=== PATIENT | female | born 1965 | race Caucasian/White ===

== ENCOUNTER 2017-02-20 09:46 | Emergency (ER) | payer SELFPAY ==
[2017-02-20 10:10] VITALS: BP 134/72
--- NOTE | 2017-02-20 11:28 | UC ---
Throat Pain/Nasal Fabien HPI - HPI Summary HPI Summary: 52 yo female with the acute onset of pain swollen glands (ant cervical) mild sore throat no recent illness no fatigue no wt loss no f/c no myalgias or arthralgias - History of Current Complaint Chief Complaint: UCGeneralIllness Stated Complaint: SWOLLEN GLANDS Time Seen by Provider: 02/20/17 10:42 Hx Obtained From: Patient Hx Last Menstrual Period: 12/12/16 Onset/Duration: Sudden Onset, Lasting Hours Severity: Moderate Pain Intensity: 4 Pain Scale Used: 0-10 Numeric Cough: None Associated Signs & Symptoms: Positive: Negative - Allergies/Home Medications Allergies/Adverse Reactions: Allergies Allergy/AdvReac Type Severity Reaction Status Date / Time Unknown Antibiotic Allergy Rash Uncoded 02/20/17 10:12 PMH/Surg Hx/FS Hx/Imm Hx Previously Healthy: Yes - Surgical History Surgical History: None - Family History Known Family History: Negative: Cardiac Disease, Hypertension, Diabetes - Social History Alcohol Use: Rare Substance Use Type: None Smoking Status (MU): Never Smoked Tobacco Review of Systems Constitutional: Negative Skin: Negative Eyes: Negative ENT: Negative Respiratory: Negative Cardiovascular: Negative Gastrointestinal: Negative Genitourinary: Negative Motor: Negative Neurovascular: Negative Musculoskeletal: Negative Neurological: Negative Psychological: Negative All Other Systems Reviewed And Are Negative: Yes Physical Exam Triage Information Reviewed: Yes Appearance: Well-Appearing, No Pain Distress, Well-Nourished Vital Signs: Initial Vital Signs Temp 98.9 F 02/20/17 09:59 Pulse 94 02/20/17 09:59 Resp 14 02/20/17 09:59 BP 134/72 02/20/17 09:59 Pulse Ox 98 02/20/17 09:59 Vital Signs Reviewed: Yes Eyes: Positive: Conjunctiva Clear ENT: Positive: Hearing grossly normal, Pharyngeal erythema. Negative: Nasal congestion, Nasal drainage, Tonsillar swelling, Tonsillar exudate, Trismus, Muffled/hoarse voice Dental: Negative: Gross Decay/Caries @, Abscess @ Neck: Positive: Supple, Tenderness @ - ant cervical nodes, Enlarged Nodes @ - ant cervical Respiratory: Positive: Lungs clear, Normal breath sounds, No respiratory distress, No accessory muscle use Cardiovascular: Positive: RRR, No Murmur, Pulses Normal Abdomen Description: Positive: No Organomegaly, Soft. Negative: Hepatomegaly, Splenomegaly Musculoskeletal: Positive: ROM Intact, No Edema Neurological: Positive: Alert Psychological Exam: Normal Skin Exam: Normal Throat Pain/Nasal Course/Dx - Differential Dx/Diagnosis Provider Diagnoses: anterior cervical lymphadenopathy Discharge - Discharge Plan Condition: Stable Disposition: HOME Prescriptions: Erythromycin TAB [EryTab TAB] 333 mg PO TID #30 tab Naproxen [Naproxen 500 MG TABS] 500 mg PO BID PRN #30 tab PRN Reason: Pain Patient Education Materials: Lymphadenopathy (ED) Referrals: [facility] [facility] [Outside] - As Soon As Possible (you need to find a mold burner) Additional Instructions: blood count and mono test pending recheck in 2-3 weeks if not better
[2017-02-20 16:46] LABS: Hematocrit 45 % (35-47); Hemoglobin 14.5 g/dl (12.0-16.0); Mean Corpuscular HGB Conc 32 g/dl (31-36); Mean Corpuscular Hemoglobin 28 pg (27-31); Mean Corpuscular Volume 87 fL (80-97); Mean Platelet Volume 9 um3 (7.4-10.4); Red Blood Count 5.16 10^6/ul (4.0-5.4); Red Cell Distribution Width 14 % (10.5-15); White Blood Count 16.5 10^3/ul (3.5-10.8)
[2017-02-20 16:48] LABS: Mono Internal Control QC Line Present
== END 2017-02-20 11:36 | disposition home or self-care (01) ==
LOC: UCEAST 09:46
DX: R59.0 Localized enlarged lymph nodes (principal)
CPT/HCPCS: 36415; 85025; 86308; 87651; 99212; G0463

== ENCOUNTER 2017-06-15 19:48 | Emergency (ER) | payer SELFPAY ==
[2017-06-15 20:11] VITALS: BP 131/78
--- NOTE | 2017-06-15 20:26 | ED ---
Head Injury - HPI Summary HPI Summary: 52 y/o female s/p basketball hit to back of head 2 weeks ago, patient states increased pain to posterior head with neck pain/ stiffness in back and bilateral sides. no V, however decreased appetite. no fatigue. no other medication, no evaluation after incident. 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 does not drive. no LOC at time of incident, no nasal drainage/ bleeding. - History Of Current Complaint Chief Complaint: UCGeneralIllness Stated Complaint: HEAD PAIN Hx Obtained From: Patient Hx Last Menstrual Period: 05/11/17 Mechanism Of Injury: Direct Blow - to back o fhead ~ 2 weeks ago Onset/Duration: Started Weeks Ago - 2 weeks Onset of Pain: Immediate Severity Currently: Moderate Severity Initially: Mild Location of Head Injury: Occipital Location: Radiates To: - down neck, to shoulder b/l Character: Dull, Throbbing, Aching Aggravating Factor(s): Movement Alleviating Factor(s): Rest Associated Signs And Symptoms: Neck Pain - Allergies/Home Medications Allergies/Adverse Reactions: Allergies Allergy/AdvReac Type Severity Reaction Status Date / Time Unknown Antibiotic Allergy Rash Uncoded 06/15/17 19:58 Home Medications: Home Medications NK [No Home Medications Reported] 06/15/17 [History Confirmed 06/15/17] PMH/Surg Hx/FS Hx/Imm Hx Previously Healthy: Yes Infectious Disease History: Yes Infectious Disease History: Reports: Hx Shingles Denies: Hx Clostridium Difficile, Hx Hepatitis, Hx Human Immunodeficiency Virus (HIV), Hx of Known/Suspected MRSA, Hx Tuberculosis, Hx Known/Suspected VRE , Hx Known/Suspected VRSA, History Other Infectious Disease, Traveled Outside the [place] in Last 30 Days - Family History Known Family History: Negative: Cardiac Disease, Hypertension, Diabetes - Social History Alcohol Use: Rare Substance Use Type: Reports: None Smoking Status (MU): Never Smoked Tobacco Review of Systems Positive: Other - difficult focusing Positive: Headache All Other Systems Reviewed And Are Negative: Yes Physical Exam Triage Information Reviewed: Yes Vital Signs On Initial Exam: Initial Vitals Temp Pulse Resp BP Pulse Ox 99.3 F 83 18 131/78 97 06/15/17 20:00 06/15/17 20:00 06/15/17 20:00 06/15/17 20:00 06/15/17 20:00 Vital Signs Reviewed: Yes Appearance: Positive: Well-Appearing, No Pain Distress, Well-Nourished Skin: Positive: Warm, Skin Color Reflects Adequate Perfusion Head/Face: Positive: Normal Head/Face Inspection Eyes: Positive: EOMI, JOSE DAVID, Conjunctiva Clear ENT: Positive: Hearing grossly normal, Pharynx normal, TMs normal Neck: Positive: Supple, Tenderness @ - b/l paraspinal tenderness b/l, worse at insertion with SCM tenderness b/l to palpation full ROM of head without difficulty, no cervical tenderness. Abdomen Description: Positive: Nontender, No Organomegaly Musculoskeletal: Positive: Normal, Strength/ROM Intact Neurological: Positive: Normal, Sensory/Motor Intact, Alert, Oriented to Person Place, Time, CN Intact II-III, Normal Gait, Rhomberg - negative, Heel to Toe - normal, Finger to Nose - normal, Facial Symmetry, Speech Normal Psychiatric: Positive: Anxious AVPU Assessment: Alert - Khadijah Coma Scale Best Eye Response: 4 - Spontaneous Best Motor Response: 6 - Obeys Commands Best Verbal Response: 5 - Oriented Diagnostics - Vital Signs Vital Signs Temp Pulse Resp BP Pulse Ox 06/15/17 20:00 99.3 F 83 18 131/78 97 - Laboratory Lab Statement: Any lab studies that have been ordered have been reviewed, and results considered in the medical decision making process. Head Injury Course/Dx Course Of Treatment: pt eval by Dr Mcmillan, reassured sytpoms c/w PCS, cervical strain. increased rest, tylenol/ motrin for pain, f/u with PCP wihtin 3-4 days if no relief, return if symptoms worsen. - Diagnoses Differential Diagnosis/HQI/PQRI: Concussion Without LOC, Contusion Provider Diagnoses: Post concussion syndrome, Torticollis, acute Discharge - Discharge Plan Condition: Good Disposition: HOME Patient Education Materials: Post Concussion Syndrome (ED), Cervical Strain (ED ), Tension Headache (ED) Referrals: No Primary Care Phys,NOPCP [Primary Care Provider] - Additional Instructions: - Return to ER with increased pain, decreased memory, impaired speech or impaired vision - Increase rest periods throughout day - warm packs or ice packs to neck as tolerated (ice packs on for 20 mins, off for 20 mins) - Follow up with primary if no improvement of symptoms within 3-4 days - Tylenol/ motrin as needed for pain
== END 2017-06-15 21:25 | disposition home or self-care (01) ==
LOC: UCEAST 19:48
DX: F07.81 Postconcussional syndrome (principal); G44.309 Post-traumatic headache, unspecified, not intractable; M43.6 Torticollis; Z88.1 Allergy status to other antibiotic agents
CPT/HCPCS: 99211; G0463

== ENCOUNTER 2017-12-24 15:49 | Emergency (ER) | payer SELFPAY ==
--- NOTE | 2017-12-24 16:15 | ED ---
Respiratory - HPI Summary HPI Summary: 52 y/o female presents to the urgent care c/o productive cough for the past 1 month. Pt reports cough is intermittent, but some times she gets this bouts of cough w/ yellowish phlegm and some other times if just a dry cough. She has been coughing so much that her chest and neck are sore. for the past week she has had mils nasal congestion w/ +PND and mild sore throat. Pt states she had the flu vaccines last year. She is concern w/ the flu. She has taken cough drops to alleviate symptoms. LMP:12/09/2017 and declines test. - History of Current Complaint Chief Complaint: UCRespiratory Stated Complaint: COUGH Time Seen by Provider: 12/24/17 16:14 Hx Obtained From: Patient Onset/Duration: Gradual Onset, Lasting Weeks - 4 weeks, Still Present, Worse Since - last week Timing: Intermittent Episodes Lasting: Initial Severity: Mild Current Severity: Moderate Pain Intensity: 0 Character: Cough (Productive) - yellowish phlegm Sputum Amount: Scant Sputum Color: Yellow Aggravating Factor(s): Recumbent Position Alleviating Factor(s): OTC Medications - cough drops, Rest Associated Signs and Symptoms: URI, Chest Pain with Cough - chest feels sore, Nasal Congestion - Risk Factors Status Asthmaticus Risk Factors: Negative Pulmonary Embolism Risk Factors: Negative Cardiac Risk Factors: Negative Pseudomonas Risk Factors: Negative Tuberculosis Risk Factors: Negative - Allergy/Home Medications Allergies/Adverse Reactions: Allergies Allergy/AdvReac Type Severity Reaction Status Date / Time Unknown Antibiotic Allergy Rash Uncoded 12/24/17 16:02 PMH/Surg Hx/FS Hx/Imm Hx Previously Healthy: Yes - Pt denies PMHX - Immunization History Hx Pertussis Vaccination: Yes Immunizations Up to Date: Yes Infectious Disease History: No Infectious Disease History: Reports: Hx Shingles Denies: Hx Clostridium Difficile, Hx Hepatitis, Hx Human Immunodeficiency Virus (HIV), Hx of Known/Suspected MRSA, Hx Tuberculosis, Hx Known/Suspected VRE , Hx Known/Suspected VRSA, History Other Infectious Disease, Traveled Outside the [place] in Last 30 Days - Family History Known Family History: Negative: Cardiac Disease, Hypertension, Diabetes - Social History Occupation: Employed Full-time Lives: With Family Alcohol Use: Rare Substance Use Type: Reports: None Smoking Status (MU): Never Smoked Tobacco Review of Systems Constitutional: Negative Eyes: Negative Positive: Sore Throat - mild , Nasal Discharge - yellowish Cardiovascular: Negative Positive: Cough - productive Gastrointestinal: Negative Genitourinary: Negative Musculoskeletal: Negative Skin: Negative Neurological: Negative Psychological: Normal All Other Systems Reviewed And Are Negative: Yes Physical Exam - Summary Physical Exam Summary: Vital Signs Reviewed: Yes General: well developed, well nourished female sitting in the examining table w/ o any apparent distress Eyes: Positive: Conjunctiva Clear - PERRLA, EOMI, fundi grossly normal ENT: Positive: Normal ENT inspection, Hearing grossly normal, Pharynx normal, Nasal congestion - edematous and erythematous nasal mucosa, Nasal drainage - yellowish drainage, TMs normal. Negative: Tonsillar swelling, Tonsillar exudate Neck: Positive: Supple, Nontender, No Lymphadenopathy Respiratory: no orthopnea or dyspnea. Able to speak in full sentences, no retractions or accessory muscle use, no tripod position, stridor, or head bobbing. Positive breath sounds. Bilaterally posterior upper lungs w/ mild rhonchi, no wheezes, no crackles or rales. Cardiovascular: Positive: RRR, No Murmur, Pulses Normal, Brisk Capillary Refill Abdomen Description: Positive: Nontender, No Organomegaly, Soft. Negative: CVA Tenderness (R), CVA Tenderness (L) Bowel Sounds: Positive: Present Musculoskeletal Exam: Normal Musculoskeletal: Positive: Strength Intact, ROM Intact, No Edema Neurological Exam: Normal Psychological Exam: Normal Skin Exam: Normal Triage Information Reviewed: Yes Vital Signs On Initial Exam: Initial Vitals Temp Pulse Resp BP Pulse Ox 97.7 F 98 18 148/76 98 12/24/17 15:56 12/24/17 15:56 12/24/17 15:56 12/24/17 15:56 12/24/17 15:56 Diagnostics - Vital Signs Vital Signs Temp Pulse Resp BP Pulse Ox 12/24/17 15:56 97.7 F 98 18 148/76 98 - Laboratory Lab Statement: Any lab studies that have been ordered have been reviewed, and results considered in the medical decision making process. Disposition - Course Course Of Treatment: 52 y/o female presents to the urgent care c/o productive cough for the past 1 month. Pt reports cough is intermittent, but some times she gets this bouts of cough w/ yellowish phlegm and some other times if just a dry cough. She has been coughing so much that her chest and neck are sore. for the past week she has had mils nasal congestion w/ +PND and mild sore throat. Pt states she had the flu vaccines last year. She is concern w/ the flu. She has taken cough drops to alleviate symptoms. LMP:12/09/2017 and declines test. Hx obtained. Pt w/ mild B/L posterior upper lungs w/ mild rhonchi on examination. O2Sat: 98%. Pt with Acute bronchitis. Pt requested the influnexa A&B test and Rapid strep: which eree both negative. Pt Rx Z-christiano PO, Tessalon tabs PO and Albuterol inhaler to alleviate bronchospasm. Pt advised to increase fluid intake and eat well. Pt's BP is elevated today advised to decrease salt in diet, monitor BP and f/u with PCP for further management. Also advised if not improvement or worsening of symptoms to return to the urgent care or f/u with PCP for further management. pt understood and agreed with plan of care. - Differential Dx - Cardiopulmonary Differential Diagnoses - Cardiopulmonary: Bronchitis, Chest Wall Pain, Lower Resp Infection, Sinusitis, Other - pneumonia - Diagnoses Provider Diagnoses: Acute bronchitis, Cough Discharge - Discharge Plan Condition: Stable Disposition: HOME Prescriptions: Albuterol HFA INHALER* [Ventolin HFA Inhaler*] 1 - 2 puff INH Q6H PRN #1 mdi PRN Reason: Cough Azithromyxin CHRISTIANO (NF) [Z-Christiano (Zithromax) 250 mg tabs #6] 2 tab PO .TODAY, THEN 1 DAILY #6 tab Benzonatate CAP* [Tessalon 100 MG CAP*] 100 mg PO TID PRN #21 cap PRN Reason: Cough Patient Education Materials: Acute Bronchitis (ED), Low-Sodium Diet (ED) Referrals: [facility] [place] [facility] [Outside] - 1 Week Additional Instructions: 1-Please take full course of antibiotic to avoid resistance. 2-Take Tessalon PO tabs as directed and use the albuterol inhaler to alleviate cough. Increase fluid intake, rest and eat well. 3- F/u with your PCP in 1 week if not improving of symptoms for further management. 4-Your BP is elevated today. please decrease salt in your diet, monitor BP and if it continues to be elevated please f/u with your PCP for further management
--- NOTE | 2017-12-24 17:17 | RAD ---
INDICATION: 1 month productive cough. Central chest pain and pressure. COMPARISON: No relevant prior exams available on the [facility] PACS for comparison. TECHNIQUE: Dual energy PA and routine lateral views of the chest were obtained. REPORT: Elevated lung volumes with increased AP thoracic diameter. No focal pulmonary lesion, compelling alveolar consolidation, pleural effusion, pneumothorax. The heart, pulmonary vasculature, and mediastinal contours are unremarkable. IMPRESSION: Stigmata of obstructive lung disease. No acute pulmonary or cardiac process evident.
[2017-12-24 17:44] VITALS: BP 112/80
== END 2017-12-24 17:55 | disposition home or self-care (01) ==
LOC: UCEAST 15:49
DX: J20.9 Acute bronchitis, unspecified (principal); R05 Cough
CPT/HCPCS: 71046; 87502; 87651; 99212; G0463